=== PATIENT | male | born 1990 | race American Indian/Alaskan Native ===

== ENCOUNTER 2017-09-03 22:16 | Emergency (ER) | payer MEDICAID ==
[2017-09-03 22:23] VITALS: BP 140/95
[2017-09-03 23:00] LABS: CHLORIDE,CL 106 mmol/L (101-111); SODIUM,NA 137 mmol/L (135-145)
[2017-09-03] MEDS ORDERED: Iopamidol 612 MG/ML 100 ML Bottle IVPUSH ONE (23:09)
--- NOTE | 2017-09-03 23:39 | EDM.PDOC ---
ED HPI GENERAL MEDICAL PROBLEM - General Chief Complaint: Abdominal Pain Stated Complaint: SICK [id number] Time Seen by Provider: 09/03/17 23:35 Source of Information: Reports: Patient History Limitations: Reports: No Limitations - History of Present Illness INITIAL COMMENTS - FREE TEXT/NARRATIVE: This 27 yo male patient reports to the ED with a 5 day history of lower mid abdominal pain and diarrhea. The patient reports that he had blood in his last bowel movement. The patient reports he has not been seen by his primary care provider. The patient reports no personal or family history of colitis or similar symptoms. Onset Date: 08/30/17 Duration: Constant, Getting Worse Location: Reports: Abdomen Quality: Reports: Other Severity: Moderate Improves with: Reports: None Worsens with: Reports: None Associated Symptoms: Reports: No Other Symptoms Abdomen Pain Score (Numeric/FACES): 6 - Related Data Allergies Allergy/AdvReac Type Severity Reaction Status Date / Time No Known Allergies Allergy Verified 09/03/17 22:23 Home Meds: Home Meds Acetaminophen [Tylenol Extra Strength] 1,000 mg PO Q6HR PRN 01/14/14 [History] Past Medical History HEENT History: Reports: Impaired Vision Cardiovascular History: Reports: None Respiratory History: Reports: None Gastrointestinal History: Reports: None Genitourinary History: Reports: None Musculoskeletal History: Reports: None Neurological History: Reports: None Psychiatric History: Reports: None Endocrine/Metabolic History: Reports: None Hematologic History: Reports: None Immunologic History: Reports: None Oncologic (Cancer) History: Reports: None Dermatologic History: Reports: None - Infectious Disease History Infectious Disease History: Reports: None - Past Surgical History Head Surgeries/Procedures: Reports: None Social & Family History - Family History Family Medical History: Noncontributory - Tobacco Use Smoking Status *Q: Current Every Day Smoker Years of Tobacco use: 2 Packs/Tins Daily: 0.1 Used Tobacco, but Quit: No Second Hand Smoke Exposure: Yes - Alcohol Use Days Per Week of Alcohol Use: 0 - Recreational Drug Use Recreational Drug Use: No ED ROS GENERAL - Review of Systems Review Of Systems: ROS reveals no pertinent complaints other than HPI. ED EXAM, GI/ABD - Physical Exam Exam: See Below Exam Limited By: No Limitations General Appearance: Alert, WD/WN, Moderate Distress Eyes: Bilateral: Normal Appearance, EOMI Ears: Normal External Exam, Normal Canal, Hearing Grossly Normal, Normal TMs Nose: Normal Inspection, Normal Mucosa, No Blood Throat/Mouth: Normal Inspection, Normal Lips, Normal Teeth, Normal Gums, Normal Oropharynx, Normal Voice, No Airway Compromise Head: Atraumatic, Normocephalic Neck: Normal Inspection, Supple, Non-Tender, Full Range of Motion Respiratory/Chest: No Respiratory Distress, Lungs Clear, Normal Breath Sounds, No Accessory Muscle Use, Chest Non-Tender Cardiovascular: Normal Peripheral Pulses, Regular Rate, Rhythm, No Edema, No Gallop, No JVD, No Murmur, No Rub GI/Abdominal Exam: Normal Bowel Sounds, Soft, No Organomegaly, No Distention, No Abnormal Bruit, No Mass, Pelvis Stable, Guarding, Tender (lower mid abdomen) (Male) Exam: Deferred Rectal (Males) Exam: Deferred Back Exam: Normal Inspection, Full Range of Motion, NT Extremities: Normal Inspection, Normal Range of Motion, Non-Tender, Normal Capillary Refill, No Pedal Edema Neurological: Alert, Oriented, CN II-XII Intact, Normal Cognition, Normal Gait, Normal Reflexes, No Motor/Sensory Deficits Psychiatric: Normal Affect, Normal Mood Skin Exam: Warm, Dry, Intact, Normal Color, No Rash Lymphatic: No Adenopathy Course - Vital Signs Last Recorded V/S: Last Vital Signs Temp 37.2 C 09/03/17 22:18 Pulse 81 09/03/17 22:18 Resp 18 09/03/17 22:18 BP 140/95 H 09/03/17 22:18 Pulse Ox 97 09/03/17 22:18 - Orders/Labs/Meds Labs: Laboratory Tests 09/03/17 09/03/17 09/03/17 Range/Units 22:35 22:35 23:46 WBC 10.7 H (5.0-10.0) 10^3/uL RBC 4.76 (4.6-6.2) 10^6/uL Hgb 15.6 (14.0-18.0) g/dL Hct 45.3 (40.0-54.0) % MCV 95.2 (80-100) fL MCH 32.8 (27.0-34.0) pg MCHC 34.4 (33.0-35.0) g/dL Plt Count 261 (150-450) 10^3/uL Neut % (Auto) 67.2 (42.2-75.2) % Lymph % (Auto) 22.9 (20.5-50.1) % Orange % (Auto) 7.9 (2-8) % Eos % (Auto) 1.8 (1.0-3.0) % Baso % (Auto) 0.2 (0.0-1.0) % Sodium 137 (135-145) mmol/L Potassium 4.4 (3.6-5.0) mmol/L Chloride 106 (101-111) mmol/L Carbon Dioxide 22.0 (21.0-31.0) mmol/L Anion Gap 13.4 BUN 14 (7-18) mg/dL Creatinine 1.0 (0.6-1.3) mg/dL Est Cr Clr Drug Dosing 112.54 mL/min Estimated GFR (MDRD) > 60 BUN/Creatinine Ratio 14.00 Glucose 99 (74-105) mg/dL Calcium 9.1 (8.4-10.2) mg/dl Total Bilirubin 0.8 (0.2-1.0) mg/dL AST 35 (10-42) IU/L ALT 37 (10-60) IU/L Alkaline Phosphatase 89 (42-121) IU/L Total Protein 8.2 (6.7-8.2) g/dl Albumin 4.5 (3.2-5.5) g/dl Globulin 3.7 Albumin/Globulin Ratio 1.22 Amylase 66 (28-100) U/L Lipase 49 (22-51) U/L Urine Color Yellow (YELLOW) Urine Appearance Clear (CLEAR) Urine pH 6.0 (5.0-9.0) Ur Specific [place] 1.015 (1.005-1.030) Urine Protein Negative (NEGATIVE) Urine Glucose (UA) Negative (NEGATIVE) Urine Ketones Negative (NEGATIVE) Urine Occult Blood Negative (NEGATIVE) Urine Nitrite Negative (NEGATIVE) Urine Bilirubin Negative (NEGATIVE) Urine Urobilinogen 0.2 (0.2-1.0) mg/dL Ur Leukocyte Esterase Negative (NEGATIVE) Urine RBC Not seen /HPF Urine WBC Not seen (0-5/HPF) /HPF Ur Epithelial Cells Rare /HPF Urine Mucus Rare /LPF Urine Opiates Screen (NEGATIVE) Ur Oxycodone Screen (NEGATIVE) Urine Methadone Screen (NEGATIVE) Ur Barbiturates Screen (NEGATIVE) U Tricyclic Antidepress (NEGATIVE) Ur Phencyclidine Scrn (NEGATIVE) Ur Amphetamine Screen (NEGATIVE) U Methamphetamines Scrn (NEGATIVE) Urine MDMA Screen (NEGATIVE) U Benzodiazepines Scrn (NEGATIVE) Urine Cocaine Screen (NEGATIVE) U Marijuana (THC) Screen (NEGATIVE) 09/03/17 Range/Units 23:46 WBC (5.0-10.0) 10^3/uL RBC (4.6-6.2) 10^6/uL Hgb (14.0-18.0) g/dL Hct (40.0-54.0) % MCV (80-100) fL MCH (27.0-34.0) pg MCHC (33.0-35.0) g/dL Plt Count (150-450) 10^3/uL Neut % (Auto) (42.2-75.2) % Lymph % (Auto) (20.5-50.1) % Orange % (Auto) (2-8) % Eos % (Auto) (1.0-3.0) % Baso % (Auto) (0.0-1.0) % Sodium (135-145) mmol/L Potassium (3.6-5.0) mmol/L Chloride (101-111) mmol/L Carbon Dioxide (21.0-31.0) mmol/L Anion Gap BUN (7-18) mg/dL Creatinine (0.6-1.3) mg/dL Est Cr Clr Drug Dosing mL/min Estimated GFR (MDRD) BUN/Creatinine Ratio Glucose (74-105) mg/dL Calcium (8.4-10.2) mg/dl Total Bilirubin (0.2-1.0) mg/dL AST (10-42) IU/L ALT (10-60) IU/L Alkaline Phosphatase (42-121) IU/L Total Protein (6.7-8.2) g/dl Albumin (3.2-5.5) g/dl Globulin Albumin/Globulin Ratio Amylase (28-100) U/L Lipase (22-51) U/L Urine Color (YELLOW) Urine Appearance (CLEAR) Urine pH (5.0-9.0) Ur Specific [place] (1.005-1.030) Urine Protein (NEGATIVE) Urine Glucose (UA) (NEGATIVE) Urine Ketones (NEGATIVE) Urine Occult Blood (NEGATIVE) Urine Nitrite (NEGATIVE) Urine Bilirubin (NEGATIVE) Urine Urobilinogen (0.2-1.0) mg/dL Ur Leukocyte Esterase (NEGATIVE) Urine RBC /HPF Urine WBC (0-5/HPF) /HPF Ur Epithelial Cells /HPF Urine Mucus /LPF Urine Opiates Screen Negative (NEGATIVE) Ur Oxycodone Screen Negative (NEGATIVE) Urine Methadone Screen Negative (NEGATIVE) Ur Barbiturates Screen Negative (NEGATIVE) U Tricyclic Antidepress Negative (NEGATIVE) Ur Phencyclidine Scrn Negative (NEGATIVE) Ur Amphetamine Screen Negative (NEGATIVE) U Methamphetamines Scrn Negative (NEGATIVE) Urine MDMA Screen Negative (NEGATIVE) U Benzodiazepines Scrn Negative (NEGATIVE) Urine Cocaine Screen Negative (NEGATIVE) U Marijuana (THC) Screen Negative (NEGATIVE) Meds: Medications Discontinued Medications Generic Name Dose Route Start Last Admin Trade Name Freq PRN Reason Stop Dose Admin Ciprofloxacin 500 mg 09/04/17 00:40 Ciprofloxacin Hcl PO 09/04/17 00:41 ONETIME ONE Iopamidol 100 ml 09/03/17 23:09 09/03/17 23:27 Isovue-300 (61%) IVPUSH 09/03/17 23:10 100 ml ONETIME ONE Administration Metronidazole 500 mg 09/04/17 00:40 Metronidazole PO 09/04/17 00:41 ONETIME ONE Departure - Departure Time of Disposition: 00:43 Disposition: Home, Self-Care 01 Condition: Fair Clinical Impression: Colitis - Discharge Information Instructions: Colitis Forms: ED Department Discharge Care Plan Goals: The patient was advised of the examination, lab and CT results during the visit. The patient was given an oral dose of Cipro and Metronidazole while in the ED. The patient was discharged with a script for Cipro (500 mg) to take 1 by mouth 2 times per day for 7 days and Metronidazole (500 mg) to take 1 by mouth 3 times per day for 7 days. If the patient has any additional symptoms or concerns, the patient should follow-up with his primary care facility for continued evaluation (colonoscopy) and management.
[2017-09-04] MEDS ORDERED: metroNIDAZOLE 250 MG Tab PO ONE (00:40)
[2017-09-04] MEDS ORDERED: Ciprofloxacin 500 MG Tab PO ONE (00:40)
== END 2017-09-04 00:48 | disposition home or self-care (01) ==
LOC: DL.ED 22:16
DX: K52.9 Noninfective gastroenteritis and colitis, unspecified (principal); F17.210 Nicotine dependence, cigarettes, uncomplicated; Z79.899 Other long term (current) drug therapy
CPT/HCPCS: 36415; 74177; 80053; 80305; 81001; 82150; 83690; 85025; 99284; A9270; Q9967

== ENCOUNTER 2017-09-18 18:16 | Emergency (ER) | payer MEDICAID ==
[2017-09-18 18:45] VITALS: BP 138/95
[2017-09-18] MEDS ORDERED: Penicillin G Benzathine/Procaine 600-600 1.2 Millunits/2 ML Syringe IM ONE (19:55)
--- NOTE | 2017-09-18 19:59 | EDM.PDOC ---
ED HPI GENERAL MEDICAL PROBLEM - General Chief Complaint: General Stated Complaint: POSSIBLE FLU, [id number] Time Seen by Provider: 09/18/17 19:55 Source of Information: Reports: Patient History Limitations: Reports: No Limitations - History of Present Illness INITIAL COMMENTS - FREE TEXT/NARRATIVE: been feeling feverish and not well. Generalized Pain Score (Numeric/FACES): 7 - Related Data Allergies Allergy/AdvReac Type Severity Reaction Status Date / Time No Known Allergies Allergy Verified 09/18/17 18:46 Home Meds: Home Meds Acetaminophen [Tylenol Extra Strength] 1,000 mg PO Q6HR PRN 01/14/14 [History] Past Medical History HEENT History: Reports: Impaired Vision Cardiovascular History: Reports: None Respiratory History: Reports: None Gastrointestinal History: Reports: None Genitourinary History: Reports: None Musculoskeletal History: Reports: None Neurological History: Reports: None Psychiatric History: Reports: None Endocrine/Metabolic History: Reports: None Hematologic History: Reports: None Immunologic History: Reports: None Oncologic (Cancer) History: Reports: None Dermatologic History: Reports: None - Infectious Disease History Infectious Disease History: Reports: None - Past Surgical History Head Surgeries/Procedures: Reports: None Social & Family History - Family History Family Medical History: Noncontributory - Tobacco Use Smoking Status *Q: Current Every Day Smoker Years of Tobacco use: 11 Packs/Tins Daily: 1 Used Tobacco, but Quit: No Second Hand Smoke Exposure: Yes - Caffeine Use Caffeine Use: Reports: Soda - Alcohol Use Days Per Week of Alcohol Use: 0 - Recreational Drug Use Recreational Drug Use: No ED ROS GENERAL - Review of Systems Review Of Systems: ROS reveals no pertinent complaints other than HPI. ED EXAM, GENERAL - Physical Exam Exam: See Below Exam Limited By: No Limitations General Appearance: Alert, WD/WN, Mild Distress, Other (general discomfort) Ears: Hearing Grossly Normal Nose: Normal Inspection Throat/Mouth: Normal Voice, No Airway Compromise, Inflammation Head: Atraumatic Neck: Non-Tender, Full Range of Motion Respiratory/Chest: No Respiratory Distress Cardiovascular: Regular Rate, Rhythm GI/Abdominal: Soft, Non-Tender Neurological: Alert, Oriented, Normal Cognition, Normal Gait, No Motor/Sensory Deficits Psychiatric: Flat Affect Skin Exam: Warm, Dry, Normal Color Lymphatic: No Adenopathy Course - Vital Signs Last Recorded V/S: Last Vital Signs Temp 37.7 C 09/18/17 18:38 Pulse 99 09/18/17 18:38 Resp 20 09/18/17 18:38 BP 138/95 H 09/18/17 18:38 Pulse Ox 94 L 09/18/17 18:38 - Orders/Labs/Meds Orders: Active Orders 24 hr Category Date Time Status Pen G Adarsh/Pen G Procaine [Bicillin C-R 600/600] Med 09/18/17 19:55 Once 1.2 millunits IM ONETIME ONE Departure - Departure Time of Disposition: 19:56 Disposition: Home, Self-Care 01 Condition: Good Clinical Impression: Strep sore throat - Discharge Information Instructions: Strep Throat, [id number] Additional Instructions: 1) avoid solid foods and scratchy foods next 48 hours 2) have popsicle, jello, juice, smoothies 3) take tyelnol or motrin for fever 4) recheck as needed 5) warm salt water gargle 4 times daily if able. - My Orders Last 24 Hours: My Active Orders 09/18/17 19:55 Pen G Adarsh/Pen G Procaine [Bicillin C-R 600/600] 1.2 millunits IM ONETIME ONE - Assessment/Plan Last 24 Hours: My Active Orders 09/18/17 19:55 Pen G Adarsh/Pen G Procaine [Bicillin C-R 600/600] 1.2 millunits IM ONETIME ONE
== END 2017-09-18 20:17 | disposition home or self-care (01) ==
LOC: DL.ED 18:16
DX: J02.0 Streptococcal pharyngitis (principal); F17.210 Nicotine dependence, cigarettes, uncomplicated
CPT/HCPCS: 87430; 87804; 96372; 99283; J0558

== ENCOUNTER 2020-07-05 09:39 | Emergency (ER) | payer OTHER, MEDICAID ==
[2020-07-05 09:37] LABS: PTT,PARTIAL THROMBOPLSTIN TIME 22.6 SEC (22.0-34.0)
[2020-07-05 09:39] LABS: ANION GAP 25.9 mEq/L (7-13); CHLORIDE,CL 109 mmol/L (98-107); SODIUM,NA 147 mmol/L (136-145)
[~2020-07-05 09:39] MED LIST: Iopamidol 612 MG/ML 100 ML Bottle IVPUSH ONE; Iopamidol 612 MG/ML 50 ML SDV IVPUSH ONE; Morphine 2 MG/ML SYRINGE IVPUSH ONE
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
== END 2020-07-05 10:01 ==
LOC: DL.ED 09:39
DX: S12.501A Unspecified nondisplaced fracture of sixth cervical vertebra, initial encounter for closed fracture (principal); S82.831A Other fracture of upper and lower end of right fibula, initial encounter for closed fracture; S82.191A Other fracture of upper end of right tibia, initial encounter for closed fracture; S09.90XA Unspecified injury of head, initial encounter; S36.00XA Unspecified injury of spleen, initial encounter; S01.81XA Laceration without foreign body of other part of head, initial encounter; S21.119A Laceration without foreign body of unspecified front wall of thorax without penetration into thoracic cavity, initial encounter; F10.129 Alcohol abuse with intoxication, unspecified; Y90.5 Blood alcohol level of 100-119 mg/100 ml; V43.62XA Car passenger injured in collision with other type car in traffic accident, initial encounter
CPT/HCPCS: 36415; 70450; 71260; 72125; 73590; 73600; 74177; 80053; 80305; 80307; 81001; 82150; 83690; 83735; 84100; 85025; 85610; 85730; 93005; 99285; Q9967; 93010

== ENCOUNTER 2020-11-02 09:57 | Emergency (ER) | payer MEDICAID ==
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
[2020-11-02 10:31] VITALS: BP 148/97; PULSE 107
[2020-11-02] MEDS ORDERED: Ondansetron 4 MG/2 ML SDV IV ONE (10:31)
[2020-11-02] MEDS ORDERED: Sodium Chloride 0.9% 1,000 ML IV ONE (10:31)
[2020-11-02] MEDS ORDERED: HYDROmorphone 1 MG/ML Syringe IVPUSH ONE (10:31)
[2020-11-02 10:49] LABS: ANION GAP 19.8 mEq/L (7-13); CHLORIDE,CL 96 mmol/L (98-107); SODIUM,NA 135 mmol/L (136-145)
[2020-11-02 11:18] LABS: CORONAVIRUS COVID-19 NAA NEGATIVE (NEGATIVE)
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
== END 2020-11-02 12:22 ==
LOC: DL.ED 09:57
DX: L02.415 Cutaneous abscess of right lower limb (principal); L03.115 Cellulitis of right lower limb; Z20.822 Contact with and (suspected) exposure to COVID-19
CPT/HCPCS: 0240U; 36415; 73590; 80053; 80307; 83605; 85025; 86140; 87040; 87070; 87077; 87186; 96374; 96375; 99285; J1170; J2405; J7030; 99284

== ENCOUNTER 2021-03-21 22:20 | Emergency (ER) | payer MEDICAID ==
[2021-03-21] MEDS ORDERED: Iopamidol 612 MG/ML 100 ML Bottle IVPUSH ONE (23:11)
[2021-03-21 23:47] LABS: ANION GAP 15.5 mEq/L (7-13); CHLORIDE,CL 98 mmol/L (98-107); SODIUM,NA 135 mmol/L (136-145)
[2021-03-22] MEDS ORDERED: Ketorolac 30 MG/ML SDV IVPUSH ONE (00:39)
[2021-03-22] MEDS ORDERED: diphenhydrAMINE 25 MG Tab PO ONE (00:39)
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
--- NOTE | 2021-03-22 01:07 | EDM.PDOC ---
ED HPI GENERAL MEDICAL PROBLEM - General Chief Complaint: Skin Complaint Stated Complaint: RIGHT KNEE, STAFF INFECTION PER PT Time Seen by Provider: 03/21/21 23:15 Source of Information: Reports: Patient, RN History Limitations: Reports: No Limitations - History of Present Illness INITIAL COMMENTS - FREE TEXT/NARRATIVE: ED with c/o abscess around screw in leg Feeling achey, some nausea, Hx fx to right lower leg with pinning and plate, wound infection. with secondary healing, states is supposed to be taking Duricef and Rifampin but has not refilled for past week. Tried to get in to ortho but unable until 03/28. Initially denied irecent injury then later recalling falling 2 seeks ago. Treatments [employer]: Reports: Acetaminophen Right Leg Pain Score (Numeric/FACES): 9 - Related Data Allergies Allergy/AdvReac Type Severity Reaction Status Date / Time No Known Allergies Allergy Verified 11/02/20 10:36 Home Meds: Home Meds Acetaminophen [Tylenol Extra Strength] 1,000 mg PO Q6HR PRN 01/14/14 [History] Past Medical History HEENT History: Reports: Impaired Vision Cardiovascular History: Reports: None Respiratory History: Reports: None Gastrointestinal History: Reports: None Genitourinary History: Reports: None Musculoskeletal History: Reports: Fracture Neurological History: Reports: None Psychiatric History: Reports: None Endocrine/Metabolic History: Reports: None Hematologic History: Reports: None Immunologic History: Reports: None Oncologic (Cancer) History: Reports: None Dermatologic History: Reports: None - Infectious Disease History Infectious Disease History: Reports: None - Past Surgical History Head Surgeries/Procedures: Reports: None HEENT Surgical History: Reports: Oral Surgery GI Surgical History: Reports: Other (See Below) Musculoskeletal Surgical History: Reports: ORIF Social & Family History - Family History Family Medical History: No Pertinent Family History - Tobacco Use Tobacco Use Status *Q: Current Every Day Tobacco User Years of Tobacco use: 10 Packs/Tins Daily: 0.2 - Caffeine Use Caffeine Use: Reports: None - Recreational Drug Use Recreational Drug Use: No - Living Situation & Occupation Living situation: Reports: with Family ED ROS GENERAL - Review of Systems Review Of Systems: Comprehensive ROS is negative, except as noted in HPI. Constitutional: Reports: Malaise HEENT: Reports: No Symptoms Respiratory: Reports: No Symptoms Cardiovascular: Reports: No Symptoms GI/Abdominal: Reports: Decreased Appetite, Nausea Musculoskeletal: Reports: Leg Pain (right) Skin: Reports: Lesions (abscess right leg) Neurological: Reports: No Symptoms ED EXAM, SKIN/RASH Exam: See Below Exam Limited By: No Limitations General Appearance: Alert, Mild Distress Eye Exam: Bilateral Eye: PERRL Ears: Normal External Exam Throat/Mouth: Normal Lips, Normal Voice Neck: Normal Inspection Respiratory/Chest: No Respiratory Distress, Lungs Clear, Normal Breath Sounds Cardiovascular: Regular Rate, Rhythm GI/Abdominal: Soft Back Exam: Full Range of Motion Extremities: Joint Swelling, Increased Warmth, Other (large healing wound abscess right anterior proximal lower leg) Neurological: Alert, Oriented, Normal Cognition, Normal Reflexes Psychiatric: Normal Affect Skin: Warm, Dry, Erythema Location, Skin: Lower Extremity, Right Associated features: Warmth, Tenderness Course - Vital Signs Last Recorded V/S: Last Vital Signs Temp 97.9 F 03/22/21 05:51 Pulse 102 H 03/22/21 05:51 Resp 18 03/22/21 05:51 BP 137/67 03/22/21 05:51 Pulse Ox 99 03/22/21 05:51 - Orders/Labs/Meds Labs: Laboratory Tests 03/21/21 03/21/21 03/21/21 Range/Units 23:10 23:10 23:10 WBC 10.6 H (5.0-10.0) 10^3/uL RBC 4.54 L (4.6-6.2) 10^6/uL Hgb 14.3 (14.0-18.0) g/dL Hct 41.4 (40.0-54.0) % MCV 91.2 (80-100) fL MCH 31.5 (27.0-34.0) pg MCHC 34.5 (33.0-35.0) g/dL Plt Count 590 H D (150-450) 10^3/uL Neut % (Auto) 75.2 (42.2-75.2) % Lymph % (Auto) 16.3 L (20.5-50.1) % [place] % (Auto) 7.4 (2-8) % Eos % (Auto) 0.8 L (1.0-3.0) % Baso % (Auto) 0.3 (0.0-1.0) % Sodium 135 L (136-145) mmol/L Potassium 3.5 (3.5-5.1) mmol/L Chloride 98 (98-107) mmol/L Carbon Dioxide 25 (21-32) mmol/L Anion Gap 15.5 H (7-13) mEq/L BUN 9 (7-18) mg/dL Creatinine 1.10 (0.70-1.30) mg/dL Est Cr Clr Drug Dosing 99.55 mL/min Estimated GFR (MDRD) > 60 BUN/Creatinine Ratio 8.2 (No establ ref range) Glucose 101 H (70-99) mg/dL Lactic Acid 0.8 (0.4-2.0) mmol/L Calcium 8.9 (8.5-10.1) mg/dL Total Bilirubin 0.5 (0.2-1.0) mg/dL AST 41 H (15-37) U/L ALT 56 (16-63) U/L Alkaline Phosphatase 152 H (46-116) U/L C-Reactive Protein 17.0 H (0.0-0.9) mg/dL Total Protein 9.5 H (6.4-8.2) g/dL Albumin 3.1 L (3.4-5.0) g/dL Globulin 6.4 Albumin/Globulin Ratio 0.48 Ethyl Alcohol < 3 (0) mg/dL SARS-CoV-2 RNA (MALIK) (NEGATIVE) 03/22/21 Range/Units 01:05 WBC (5.0-10.0) 10^3/uL RBC (4.6-6.2) 10^6/uL Hgb (14.0-18.0) g/dL Hct (40.0-54.0) % MCV (80-100) fL MCH (27.0-34.0) pg MCHC (33.0-35.0) g/dL Plt Count (150-450) 10^3/uL Neut % (Auto) (42.2-75.2) % Lymph % (Auto) (20.5-50.1) % [place] % (Auto) (2-8) % Eos % (Auto) (1.0-3.0) % Baso % (Auto) (0.0-1.0) % Sodium (136-145) mmol/L Potassium (3.5-5.1) mmol/L Chloride (98-107) mmol/L Carbon Dioxide (21-32) mmol/L Anion Gap (7-13) mEq/L BUN (7-18) mg/dL Creatinine (0.70-1.30) mg/dL Est Cr Clr Drug Dosing mL/min Estimated GFR (MDRD) BUN/Creatinine Ratio (No establ ref range) Glucose (70-99) mg/dL Lactic Acid (0.4-2.0) mmol/L Calcium (8.5-10.1) mg/dL Total Bilirubin (0.2-1.0) mg/dL AST (15-37) U/L ALT (16-63) U/L Alkaline Phosphatase (46-116) U/L C-Reactive Protein (0.0-0.9) mg/dL Total Protein (6.4-8.2) g/dL Albumin (3.4-5.0) g/dL Globulin Albumin/Globulin Ratio Ethyl Alcohol (0) mg/dL SARS-CoV-2 RNA (MALIK) Negative (NEGATIVE) Meds: Medications Discontinued Medications Generic Name Dose Route Start Last Admin Trade Name Freq PRN Reason Stop Dose Admin Diphenhydramine HCl 25 mg 03/22/21 00:39 03/22/21 00:57 Diphenhydramine 25 Mg Tab PO 03/22/21 00:40 25 mg ONETIME ONE Administration Vancomycin HCl 1,500 mg/ 500 mls @ 333.333 mls/hr 03/22/21 00:38 03/22/21 00:57 Sodium Chloride IV 03/22/21 02:07 333.333 mls/hr ONETIME ONE Administration Iopamidol 100 ml 03/21/21 23:11 03/21/21 23:37 Iopamidol 612 Mg/Ml 100 Ml Bottle IVPUSH 03/21/21 23:12 100 ml ONETIME ONE Administration Ketorolac Tromethamine 30 mg 03/22/21 00:39 03/22/21 00:56 Ketorolac 30 Mg/Ml Sdv IVPUSH 03/22/21 00:40 30 mg ONETIME ONE Administration - Re-Assessments/Exams Free Text/Narrative Re-Assessment/Exam: 03/22/21 07:[address] Mcgovern, recommend tx to Alt and be seen in ED. Tx via [facility]. Departure - Departure Time of Disposition: 07:30 Disposition: DC/Tfer to Acute Hospital 02 Clinical Impression: Abscess of right lower extremity, Non compliance w medication regimen Septic arthritis Qualifiers: Septic arthritis location: knee Septic arthritis organism: due to unspecified organism Laterality: right Qualified Code(s): M00.9 - Pyogenic arthritis, unspecified - Discharge Information *PRESCRIPTION DRUG MONITORING PROGRAM REVIEWED*: No *COPY OF PRESCRIPTION DRUG MONITORING REPORT IN PATIENT TIM: No Instructions: Skin Abscess, Septic Arthritis Forms: ED Department Discharge Sepsis Event Note (ED) - Evaluation Sepsis Screening Result: Possible Sepsis Risk
[2021-03-22 05:52] VITALS: BP 137/67; PULSE 102
== END 2021-03-22 07:39 ==
LOC: DL.ED 22:20
DX: L02.415 Cutaneous abscess of right lower limb (principal); M00.9 Pyogenic arthritis, unspecified; Z91.14 Patient's other noncompliance with medication regimen; Z72.0 Tobacco use; Z20.822 Contact with and (suspected) exposure to COVID-19
CPT/HCPCS: 36415; 73701; 80053; 80307; 83605; 85025; 86140; 87040; 87070; 87635; 96365; 96366; 96375; 99285; A9270; J1885; J3370; J7040; Q9967; U0002